=== PATIENT | male | born 1965 | race African-American/Black ===

== ENCOUNTER 2017-05-26 09:23 | Day surgery (SDC) | payer MEDICARE ==
[~2017-05-26] VITALS: Ht 180.3 cm; Wt 71.7 kg
--- NOTE | ~2017-05-26 | OP ---
PATIENT NAME: LATA VASQUEZ MEDICAL RECORD: [id number] :61 LOCATION:D.OPS ADMISSION DATE: SURGEON: FABIAN ROBLES MD DATE OF OPERATION: 05/26/2017 DATE OF OPERATION: 05/26/2017 PREOPERATIVE DIAGNOSES: 1. Left upper quadrant ostomy site incisional hernia. 2. Liver cirrhosis. 3. Chronic hepatitis B. 4. Tobacco dependence syndrome. 5. Hypertension. POSTOPERATIVE DIAGNOSES: 1. Left upper quadrant ostomy site incisional hernia. 2. Liver cirrhosis. 3. Chronic hepatitis B. 4. Tobacco dependence syndrome. 5. Hypertension. PROCEDURE: Left upper quadrant ventral hernia repair without mesh. SURGEON: Fabian Robles MD REPORT OF PROCEDURE: The patient's abdomen was prepped and draped in sterile fashion. A skin incision was made in the left lateral superior abdomen in a transverse fashion. Electrocautery was used to dissect down through the subcutaneous tissues and we encountered a hernia sac. This hernia sac was small in nature and fed into a very small opening in the fascia. The hernia sac was released and within the hernia sac was omental fat. This fat was just high ligated and the remainder was pushed back into the abdominal cavity after care was taken to make sure there was no sign of any bleeding. The hernia defect was about 1 x 1 cm in greatest diameter. The fascia was cleared off in all directions and reapproximated with interrupted 0 Prolenes times 5. The wound did not appear to be under any tension. There was no sign of any active bleeding. We irrigated out the wound thoroughly with normal saline and then infused 10 mL of 0.25% Marcaine with epinephrine. The subcutaneous tissues were reapproximated with interrupted 3-0 Vicryl and the skin was closed with running subcutaneous 5-0 Monocryl. COMPLICATIONS: None. CONDITION: Stable. ANESTHESIA: General endotracheal and local. BLOOD LOSS: Minimal. TRANSINT:[id number] Voice Confirmation ID: [id number] DOCUMENT ID: [id number] OPERATIVE REPORT [id number] PEDROFABIAN ESCOBAR MD CC: PA FAJARDO DO [id number] DICTATION DATE: 05/26/17 1340 HEAD OF STOCK: 05/26/17 1420 REG [facility] [address] [id number]
[~2017-05-26 09:23] MED LIST: BARACLUDE1 MG PO; HYDROCODON-ACE1 EAC7 PO; NORVASC5 MG PO
[2017-05-26 09:59] LABS: BASOPHILS 0.8 % (0-2); EOSINOPHILS 4.7 % (0-7); HEMATOCRIT 42.7 % (42.0-54.0); HEMOGLOBIN 14.6 g/dL (13.5-17.5); IMMATURE GRANULOCYTES 0.2 % (0-5); LYMPHOCYTES 36.8 % (15-50); MCH 31.4 pg (26.0-34.0); MCHC 34.2 g/dL (31.0-37.0); MCV 91.8 fL (80.0-100.0); MEAN PLATELET VOLUME 10.4 fL (7.4-10.4); MONOCYTES 7.1 % (2-11); NEUTROPHILS 50.4 % (40-80); PLATELET COUNT 153 10x3/uL (130-400); RBC 4.65 10x6/uL (4.20-6.10); RDW 14.4 % (11.5-14.5); WBC 6.2 10x3/uL (4.8-10.8)
[2017-05-26 10:13] LABS: APTT 32.7 SECONDS (22.8-39.4); INR 1.23 (0.85-1.17); PROTIME 15.1 SECONDS (11.6-15.0)
[2017-05-26 10:22] LABS: ALBUMIN 3.8 g/dL (3.4-5.0); ANION GAP 11.8 mmol/L (8-16); BILIRUBIN - TOTAL 0.4 mg/dL (0.2-1.3); CALCIUM 8.9 mg/dL (8.5-10.1); CARBON DIOXIDE 29.8 mmol/L (21.0-32.0); CREATININE - SERUM 1.1 mg/dL (0.6-1.3); POTASSIUM - SERUM 3.6 mmol/L (3.5-5.1); PROTEIN - SERUM 7.9 g/dL (6.4-8.2)
[2017-05-26 11:48] VITALS: BP 124/79; Ht 180.3 cm; Wt 71.7 kg
[2017-05-26] MEDS ORDERED: REPREXAIN 10-21 EACH PO (13:37)
== END 2017-05-26 18:45 | disposition home or self-care (01) ==
LOC: D.OPS 09:23 → D.PAN 11:45 → D.OPS 18:45
PROVIDERS: Anesthesiology; Surgery
DX: K43.2 Incisional hernia without obstruction or gangrene (principal); Z01.812 Encounter for preprocedural laboratory examination; K74.60 Unspecified cirrhosis of liver; B18.1 Chronic viral hepatitis B without delta-agent; I10 Essential (primary) hypertension; F17.200 Nicotine dependence, unspecified, uncomplicated